=== PATIENT | female | born 1965 | race Caucasian/White ===

== ENCOUNTER 2020-05-15 21:00 | Outpatient (REF) | payer BC, SELFPAY ==
[2020-05-15 15:48] LABS: Calculated LDL 123 mg/dL (<100); Cholesterol 219 mg/dL (<200); HDL Cholesterol 70 mg/dL (40-60); Triglyceride 134 mg/dL (<150)
== END 2020-05-15 21:20 ==
LOC: NCHCN 21:00
PROVIDERS: Visit Provider Physician Assistant Medical
DX: Z13.6 Encounter for screening for cardiovascular disorders (principal)
CPT/HCPCS: 80061

== ENCOUNTER 2021-04-16 12:29 | Outpatient (REF) | payer BC, SELFPAY ==
[2021-04-16 16:09] LABS: Calculated LDL 149 mg/dL (<100); Cholesterol 237 mg/dL (<200); HDL Cholesterol 74 mg/dL (40-60); Triglyceride 74 mg/dL (<150)
== END 2021-04-16 12:30 | disposition home or self-care (01) ==
LOC: NCHCN 12:29
PROVIDERS: Visit Provider Nurse Practitioner Family
DX: Z00.00 Encounter for general adult medical examination without abnormal findings (principal)
CPT/HCPCS: 80061

== ENCOUNTER 2022-05-15 15:01 | Outpatient (REF) | payer BC, SELFPAY ==
[2022-05-15 16:01] LABS: Calculated LDL 134 mg/dL (<100); Cholesterol 230 mg/dL (<200); Glucose 97 mg/dL (74-106); HDL Cholesterol 76 mg/dL (40-60); Triglyceride 103 mg/dL (<150)
== END 2022-05-15 15:02 | disposition home or self-care (01) ==
LOC: NCHCN 15:01
PROVIDERS: Visit Provider Family Medicine
DX: E78.5 Hyperlipidemia, unspecified (principal); Z00.00 Encounter for general adult medical examination without abnormal findings
CPT/HCPCS: 80061; 82947

== ENCOUNTER 2022-11-26 10:27 | Outpatient (REF) | payer BC, SELFPAY ==
[2022-11-26 15:34] LABS: ALT 35 U/L (14-59); AST 29 U/L (15-37); Alkaline Phosphatase 61 U/L (46-116); Anion Gap 7.1 mmol/L (3-11); BUN 10 mg/dL (7-18); Bilirubin, Total 0.5 mg/dL (0.2-1.0); CO2 29.9 mmol/L (21.0-32.0); CREATININE 0.8 mg/dL (0.55-1.02); Calcium 9.1 mg/dL (8.5-10.1); Calculated LDL 130 mg/dL (<100); Chloride 102 mmol/L (98-107); Cholesterol 215 mg/dL (<200); Estimated GFR 84.82 (mL/min/1.73m2); Glucose 94 mg/dL (74-106); HDL Cholesterol 69 mg/dL (40-60); Potassium 3.9 mmol/L (3.5-5.1); Sodium 139 mmol/L (136-145); Total Protein 7.1 g/dL (6.4-8.2); Triglyceride 82 mg/dL (<150)
== END 2022-11-26 10:28 | disposition home or self-care (01) ==
LOC: NCHCN 10:27
PROVIDERS: Visit Provider Family Medicine
DX: Z00.00 Encounter for general adult medical examination without abnormal findings (principal); E78.5 Hyperlipidemia, unspecified
CPT/HCPCS: 80053; 80061

== ENCOUNTER 2023-05-21 10:10 | Outpatient (REF) | payer BC, SELFPAY ==
--- NOTE | 2023-05-21 16:30 | PAPFT_PTH ---
PATIENT: Sulema Pool LOC: [facility] U#:[id number] AGE/SX: 58/F ROOM: RE05/21/[address]: Tracey Candelaria : 1965 BED: DIS: 05/21/2023 SPEC #: [id number] RECD: 05/22/23 13:02 STATUS: MARCELLUS REQ #: [id number] EFREN: 05/21/23 16:[address]: Tracey Candelaria DEPT: [facility] Cytology RECD BY: Elina Snow ENTERED: 05/22/23 13:02 SP TYPE: PAPFT OTHR DR: Unknown,Unknown Tissues: 1 - CX/ENDOCX FOR PAP SMEARS Procedures: PAP THIN PREP/[facility] Screening HPV DNA PROBE Comments: [id number] (CHLAMYDIA/GC)
--- OUTSIDE RECORDS SUMMARY | 2023-05-22 10:14 | XMS_ITS | CCD ---
Author Name Unknown Address [address] [place] [address] [phone] Organization Unknown Address [address] [place] [address] [phone] Care Team Providers Care Professor Of Medicine Name Role Phone GAGE LUTZ Adelina Attending Physician [phone] Vital Signs Unknown or Not Available. Allergies Allergy Code Allergy Type Reaction Status MACRODANTIN 20290925 Drug allergy Active TYLENOL 20230726 Drug allergy Active CODEINE 2669 Drug allergy Active SULFA (sulfonamide) 0 Drug allergy Act calvin GLUTEN 0 Food allergy Joint Pain Active PENICILLIN 0 Drug allergy Active PROCHLORPERAZINE 8703 Drug allergy RESTLESS Active Procedures Unknown or Not Available. History of Immunizations Unknown or Not Available. Problems Unknown or Not Available. Results Unknown or Not Available. Active Medications Unknown or Not Available. Medications Administered During Visit Unknown or Not Available. Encounters Encounter Diagnosis Diagnosis Code Start Date Procedure and treatment not carried out because of other contraindication [id number] 01/12/2023 Social History Smoking Status Code Start Date End Date Never smoker [id number] Patient Decision Aids Unknown or Not Available. Discharge Instructions You were admitted to [facility] on 01/12/2023 09:48 with a principal diagnosis of Procedure and treatment not carried out because of other contraindication You were discharged from [facility] on 01/12/2023 13:35 Should you have any questions prior to discharge, please contact a member of your healthcare team. If you have left the hospital and have any questions, please contact your primary care physician. Chief Complaint and Reason For Visit Unknown or Not Available. Function Status Unknown or Not Available. Plan of Care Unknown or Not Available. Referral/Transition of Care Unknown or Not Available.
--- OUTSIDE RECORDS SUMMARY | 2023-05-22 10:14 | XMS_ITS | CCD ---
Author Name Unknown Address [address] [place] [address] [phone] Organization Unknown Address [address] [place] [address] [phone] Care Team Providers Care Intensive Care Nurse Name Role Phone GAGE LUTZ Adelina Attending Physician [phone] Vital Signs Unknown or Not Available. Allergies Allergy Code Allergy Type Reaction Status MACRODANTIN 20290925 Drug allergy Active TYLENOL 20230726 Drug allergy Active CODEINE 2669 Drug allergy Active SULFA (sulfonamide) 0 Drug allergy Act calvin GLUTEN 0 Food allergy Joint Pain Active PENICILLIN 0 Drug allergy Active PROCHLORPERAZINE 04 Drug allergy RESTLESS Active Procedures Unknown or Not Available. History of Immunizations Unknown or Not Available. Problems Unknown or Not Available. Results Unknown or Not Available. Active Medications Unknown or Not Available. Medications Administered During Visit Unknown or Not Available. Encounters Encounter Diagnosis Diagnosis Code Start Date Procedure not done because contraindicated [id number] 01/12/2023 Social History Smoking Status Code Start Date End Date Never smoker [id number] Patient Decision Aids Unknown or Not Available. Discharge Instructions You were admitted to [facility] on 01/12/2023 00:18 with a principal diagnosis of Procedure and treatment not carried out because of other contraindication You were discharged from [facility] on 01/12/2023 00:18 Should you have any questions prior to [...]
--- OUTSIDE RECORDS SUMMARY | 2023-05-22 10:15 | XMS_ITS | CCD ---
Author Name Unknown Address [address] [place] [address] [phone] Organization Unknown Address [address] [place] [address] [phone] Care Team Providers Care Timber Supervisor Name Role Phone MITA HIGHTOWER Attending Physician [phone] Vital Signs Unknown or Not Available. Allergies [...] Encounters Encounter Diagnosis Diagnosis Code Start Date Stress incontinence (female) (male) N393 03/30/2023 Social History Smoking Status Code Start Date End Date Never smoker [id number] Patient Decision Aids Unknown or Not Available. Discharge Instructions You were admitted to [facility] on 03/30/2023 07:52 with a principal diagnosis of Stress incontinence (female) (male) You were discharged from [facility] Should you have any questions prior to [...]
--- OUTSIDE RECORDS SUMMARY | 2023-05-22 10:15 | XMS_ITS | CCD ---
Author Name Unknown Address [address] [place] [address] [phone] Organization Unknown Address [address] [place] [address] [phone] Care Team Providers Care Pocketed Spring Assembler Name Role Phone ROLANDO FELIPE MD Attending Physician [phone] SHAYAN PUGH MD Er Physician [phone] Vital Signs Unknown or Not Available. Allergies Unknown or Not Available. Procedures Unknown or Not Available. History of Immunizations Unknown or Not Available. Problems Unknown or Not Available. Results COMPREHENSIVE METABOLIC PANE L (CMP) - Collect Date/Time: 12/20/2020 19:10 Test Name Code Test Result Test Units Test Ref Rang e GLUCOSE 2345-7 92 mg/dL L=70 H=116 BUN 3094-0 11 mg/dL L=6 H=25 CREATININE 2160-0 0.70 mg/dL L=0.51 H=0.95 SODIUM SERUM 2951-2 144 mmol/L L=136 H=145 POTASSIUM SERUM 2823-3 3.5 mmol/L L=3.4 H=5 .2 CHLORIDE SERUM 2075-0 101 mmol/L L=96 H=110 CARBON DIOXIDE (CO2) 2028-9 31 mmol/L L=22 H=34 ANION GAP 11780-9 12.2 mmol/L CALCIUM SERUM 22147-2 9.9 mg/dL L=8.2 H=10. 2 BILIRUBIN TOTAL 1975-2 0.5 mg/dL L=0.0 H=1 .3 ALK. PHOS. 6768-6 78 U/L L=46 H=116 SGOT (AST) 1920-8 29 U/L L=15 H=37 SGPT (ALT) 1742-6 62 U/L L=12 H=78 TOTAL PROTEIN 2885-2 8.5 gm/dL L=6.0 H=8.0 ALBUMIN 1751-7 5.0 gm/dL L=3.4 H=5.0 AGE 55 years eGFR (non-Afr.Amer.) 67525-6 86 mL/min eGFR (Afr-Liberian) 86053-1 104 mL/min CBC W/ DIFFERENTIAL - Collec t Date/Time: 12/20/2020 19:10 Test Name Code Test Result Test Units Test Ref Rang e WBC 6690-2 6.06 th/cmm L=5.00 H=10.00 NEUT % 49.0 % L=40.0 H=80.0 LYMPH % 41.1 % L=10.0 H=50.0 MONO % 83546-5 6.9 % L=2.0 H=12.0 EOS % 1.8 % L=0.0 H=8.0 BASO % 1.0 % L=0.0 H=3.0 IG % 2514-8 0.2 % L=0.0 H=1.1 NRBC % 85850-6 0.0 % L=0.0 H=0.0 NEUT abs count 751-8 3.0 th/cmm L=1.6 H=8. 4 LYMPH abs count 731-0 2.5 th/cmm L=1.5 H=4 .0 MONO abs count 742-7 0.4 th/cmm L=0.2 H=1. 0 EOS abs count 711-2 0.1 th/cmm L=0.0 H=0.5 BASO abs count 704-7 0.1 th/cmm L=0.0 H=0. 2 IG abs count 24912-7 0.0 th/cmm L=0.0 H=0.1 NRBC abs count 58101-7 0.0 mil/cmm L=0.0 H=0. 0 RBC 789-8 4.73 mil/cmm L=3.90 H=5.40 HEMOGLOBIN 718-7 14.7 gm/dL L=12.0 H=16.0 HEMATOCRIT 4544-3 45 % L=37 H=47 MCV 787-2 95 fL L=82 H=92 MCH 785-6 31.1 pg L=27.0 H=31.0 MCHC 786-4 32.7 % L=32.0 H=36.0 RDW-SD 788-0 52.9 fL L=39.0 H=49.0 PLATELET COUNT 777-3 237 th/cmm L=150 H=45 0 URINALYSIS WITH REFLEX CULT IF POSITIVE - Collect Date/Time: 12/20/2020 20:17 Test Name Code Test Result Test Units Test Ref Rang e COLLECTION MODE: Clean Catch N/A Color 5778-6 STRAW N/A yellow Appearance 5767-9 CLEAR N/A clear Glucose urine 52354-3 NEGATIVE N/A negative mg /dl Bilirubin 5770-3 NEGATIVE N/A negative Ketones 2514-8 NEGATIVE N/A negative mg/dl Spec gravity 5811-5 1.015 N/A 1.003 - 1.03 0 pH urine 2756-5 7.5 N/A 5.0 - 7.0 Protein 50181-8 NEGATIVE N/A negative mg/dl Urobilinogen 66787-0 0.2 N/A <or= 1 EU/dl Nitrite. 5802-4 NEGATIVE N/A negative Blood 5794-3 NEGATIVE N/A negative Leukocytes. TRACE N/A negative MICROSCOPIC INDICATED N/A WBCs. 67949-0 0-5 N/A 0-5 / hpf RBCs 64196-9 none N/A 0-5 / hpf Epith cells 35684-0 0-5 N/A 0-5 / hpf Cell types squamous N/A Crystals none N/A none Bacteria none N/A none Mucus 8247-9 none N/A none Casts 34100-4 none N/A none /lpf Active Medications Unknown or Not Available. Medications Administered During Visit Unknown or Not Available. Encounters Encounter Diagnosis Diagnosis Code Start Date Dizziness and giddiness R42 12/21/19 21 Social History Smoking Status Code Start Date End Date Never smoker [id number] Patient Decision Aids Unknown or Not Available. Discharge Instructions You were admitted to [facility] on 12/20/2020 18:54 with a principal diagnosis of Dizziness and giddiness You had the following tests done:URINALYSIS WITH REFLEX CULT IF POSITIVECBC W/ DIFFERENTIALCOMPREHENSIVE METABOLIC PANEL (CMP) You were discharged from [facility] on 12/20/2020 21:15 Should you have any questions prior to discharge, please contact a member of your healthcare team. If you have left the hospital and have any questions, please contact your primary care physician. Chief Complaint and Reason For Visit Chief Complaint Date of Onset QUESTIONING EXPOSURE Function Status Unknown or Not Available. Plan of Care Unknown or Not Available. Referral/Transition of Care Unknown or Not Available.
--- OUTSIDE RECORDS SUMMARY | 2023-05-22 10:15 | XMS_ITS | CCD ---
Author Name Unknown Address [address] [place] [address] [phone] Organization Unknown Address [address] [place] [address] [phone] Care Team Providers Care Tree Wrapper Name Role Phone GAGE LUTZ Attending Physician [phone] GAGE LUTZ (Secondary) Ph ysician [phone] Vital Signs Unknown or Not Available. Allergies Unknown or Not Available. Procedures Unknown or Not Available. History of Immunizations Unknown or Not Available. Problems Unknown or Not Available. Results CBC W/ DIFFERENTIAL* - Colle ct Date/Time: 02/19/2022 08:43 Test Name Code Test Result Test Units Test Ref Rang e WBC 6690-2 4.38 th/cmm L=5.00 H=10.00 NEUT % 50.2 % L=40.0 H=80.0 LYMPH % 36.1 % L=10.0 H=50.0 MONO % 04732-9 8.2 % L=2.0 H=12.0 EOS % 3.7 % L=0.0 H=8.0 BASO % 1.6 % L=0.0 H=3.0 IG % 2514-8 0.2 % L=0.0 H=1.1 NRBC % 15357-5 0.0 % L=0.0 H=0.0 NEUT abs count 751-8 2.2 th/cmm L=1.6 H=8. 4 LYMPH abs count 731-0 1.6 th/cmm L=1.5 H=4 .0 MONO abs count 742-7 0.4 th/cmm L=0.2 H=1. 0 EOS abs count 711-2 0.2 th/cmm L=0.0 H=0.5 BASO abs count 704-7 0.1 th/cmm L=0.0 H=0. 2 IG abs count 78345-5 0.0 th/cmm L=0.0 H=0.1 NRBC abs count 45804-0 0.0 mil/cmm L=0.0 H=0. 0 RBC 789-8 4.40 mil/cmm L=3.90 H=5.40 HEMOGLOBIN 718-7 13.9 gm/dL L=12.0 H=16.0 HEMATOCRIT 4544-3 42 % L=37 H=47 MCV 787-2 96 fL L=82 H=92 MCH 785-6 31.6 pg L=27.0 H=31.0 MCHC 786-4 33.1 % L=32.0 H=36.0 RDW-SD 788-0 47.9 fL L=39.0 H=49.0 PLATELET COUNT 777-3 241 th/cmm L=150 H=45 0 Active Medications Unknown or Not Available. Medications Administered During Visit Unknown or Not Available. Encounters Encounter Diagnosis Diagnosis Code Start Date Melena [id number] 02/19/2022 Social History Smoking Status Code Start Date End Date Never smoker [id number] Patient Decision Aids Unknown or Not Available. Discharge Instructions You were admitted to [facility] on 02/19/2022 07:20 with a principal diagnosis of Melena You had the following tests done:CBC W/ DIFFERENTIAL* You were discharged from [facility] on 02/19/2022 00:00 Should you have any questions prior to [...]
[2023-05-25 14:35] LABS: Chlamydia Result Negative (Negative); GC Result Negative (Negative)
== END 2023-05-21 10:11 | disposition home or self-care (01) ==
LOC: NCHCN 10:10
PROVIDERS: Visit Provider Family Medicine
DX: Z00.00 Encounter for general adult medical examination without abnormal findings (principal); Z12.4 Encounter for screening for malignant neoplasm of cervix
CPT/HCPCS: 87491; 87591; 88142; 87624